=== PATIENT | female | born 1985 | race Caucasian/White ===

== ENCOUNTER 2017-10-11 09:30 | Emergency (ER) | payer OTHER ==
[2017-10-11 10:01] LABS: #Basophils 0.1 thou/uL (0.0-0.2); #Eosinphils 0.2 thou/uL (0.0-0.7); #Lymphocytes 3.5 thou/uL (1.20-3.40); #Monocytes 0.9 thou/uL (0.11-0.59); #Neutrophils 5.7 thou/uL (1.40-6.50); %Lymphocytes 33.4 % (21.0-51.0); %Monocytes 9.1 % (0.0-10.0); %Neutrophils 54.6 % (42.0-75.0); Hemoglobin 14.7 g/dL (12.0-16.0); Mean Corpuscular Hemoglobin 32.3 pg (27.0-31.0); Mean Platelet Volume 8.5 fL (7.4-10.4); Platelet Count 263 thou/uL (130-400); RBC Distribution Width 12.1 % (11.5-14.5); Red Blood Cell (RBC) Count 4.57 mill/uL (4.20-5.40); White Blood Cell (WBC) Count 10.4 thou/uL (4.8-10.8)
[2017-10-11] MEDS ORDERED: Lidocaine Viscous Sol 2% 15 ml UD Cup ONE (10:04)
[2017-10-11] MEDS ORDERED: Mag-Al 1200 mg/1200 mg/30 ML UDCUP ONE (10:04)
[2017-10-11] MEDS ORDERED: Sucralfate 1 GM/10 ML UDCUP ONE (10:04)
[2017-10-11 10:16] LABS: Albumin 4.3 g/dL (3.5-5.0); Anion Gap 8 mmol/L (10-20); BUN (Urea Nitrogen) 9 mg/dL (7.0-18.7); Bilirubin, Total 0.5 mg/dL (0.2-1.2); Calc. Creatinine Clearance 0 mL/min (70-130); Calcium 9.1 mg/dL (7.8-10.44); Carbon Dioxide 26 mmol/L (22-29); Chloride 107 mmol/L (98-107); Estimated GFR-MDRD Greater than 90; Globulin 2.8 g/dL (2.4-3.5); Glucose 94 mg/dL (70-105); Potassium 3.8 mmol/L (3.5-5.1); Protein, Total 7.1 g/dL (6.0-8.3); Sodium 137 mmol/L (136-145)
[2017-10-11 10:17] LABS: ALT (SGPT) 22 U/L (8-55); AST (SGOT) 15 U/L (5-34); Alkaline Phosphatase 65 U/L (40-150); CK (CPK) 128 U/L (29-168); Lipase 17 U/L (8-78)
[2017-10-11 10:19] LABS: CKMB 1.2 ng/mL (0-6.6); Troponin I Less than 0.010 ng/mL (< 0.028)
--- NOTE | 2017-10-11 11:15 | RAD ---
CHEST 1 VIEW: HISTORY: Chest pain. COMPARISON: None. FINDINGS: Lungs are clear. No pneumothorax or effusion. Cardiac silhouette and mediastinal contours are withi n normal limits. IMPRESSION: No acute intrathoracic abnormality. POS: [facility]
--- NOTE | 2017-10-17 20:42 | EKG ---
Test Reason : CP Blood Pressure : / mmHG Vent. Rate : 076 BPM Atrial Rate : 076 BPM P-R Int : 142 ms QRS Dur : 092 ms QT Int : 350 ms P-R-T Axes : 059 034 002 degrees QTc Int : 393 ms Normal sinus rhythm Normal ECG Confirmed by BERTHA QUEEN ([id number]), video tape editor ESTELITA BROWN ([id number]) on 10/17/2017 8:41:20 PM Referred By: Confirmed By:BERTHA QUEEN
== END 2017-10-11 11:37 | disposition home or self-care (01) ==
LOC: ERS 09:30
DX: R07.9 Chest pain, unspecified (principal); F41.9 Anxiety disorder, unspecified; F31.9 Bipolar disorder, unspecified; F17.210 Nicotine dependence, cigarettes, uncomplicated; J45.909 Unspecified asthma, uncomplicated; K21.9 Gastro-esophageal reflux disease without esophagitis
CPT/HCPCS: 71045; 80053; 82553; 83690; 84484; 85025; 93005; 94760; 99406

== ENCOUNTER 2025-05-29 09:58 | Emergency (ER) | payer BC, OTHER | END 2025-05-29 12:17 | disposition home or self-care (01) | LOC: ERS 09:58 | DX: J06.9 Acute upper respiratory infection, unspecified (principal); F17.210 Nicotine dependence, cigarettes, uncomplicated | CPT/HCPCS: 71046; 87428 ==